=== PATIENT | male | born 1960 | race Caucasian/White ===

== ENCOUNTER 2020-10-23 12:08 | Emergency (ER) | payer MEDICARE ==
[2020-10-23 12:22] VITALS: BP 132/83
--- NOTE | 2020-10-23 12:25 | ER Document Report ---
ED Medical Screen (RME) - General Chief Complaint: Flank Pain Stated Complaint: POSSIBLE KIDNEY STONE Time Seen by Provider: 10/23/20 12:21 - HPI Notes: Patient is a 60-year-old male with a history of frequent kidney stones who pr esents with left flank pain that began a couple days ago. Patient states his pain feels similar to his past kidney stones. His last kidney stone was a year and a half ago and had a lithotripsy done. He denies dysuria, hematuria, nausea, vomiting, and fever. Physical Exam - Vital signs Vitals: Temp Pulse Resp BP Pulse Ox 97.6 F 72 16 132/83 H 99 10/23/20 12:18 10/23/20 12:18 10/23/20 12:18 10/23/20 12:18 10/23/20 12:18 - Abdominal Tenderness: Tender - Left flank - Back Back: No: CVA tenderness Course - Re-evaluation Re-evalutation: I have greeted and performed a rapid initial assessment of this patient. A comprehensive ED assessment and evaluation of the patient, analysis of test results and completion of medical decision making process will be conducted by an additional ED providers. - Vital Signs Vital signs: Temp Pulse Resp BP Pulse Ox 97.6 F 72 16 132/83 H 99 10/23/20 12:18 10/23/20 12:18 10/23/20 12:18 10/23/20 12:18 10/23/20 12:18
[2020-10-23 12:55] LABS: ABSOLUTE EOSINOPHILS # (AUTO) 0.1 10^3/uL (0.0-0.6); ABSOLUTE LYMPHOCYTES (AUTO) 2.1 10^3/uL (0.5-4.7); ABSOLUTE MONOCYTES (AUTO) 0.6 10^3/uL (0.1-1.4); ABSOLUTE NEUT (AUTO) 2.5 10^3/uL (1.7-8.2); BASOPHILS % (AUTO) 0.8 % (0-2); EOSINOPHILS % (AUTO) 2.6 % (0-6); HEMOGLOBIN 14.2 g/dL (13.5-17.0); LYMPHOCYTES % (AUTO) 38.6 % (13-45); MEAN CORPUSCULAR HGB CONC 33.7 g/dL (32.0-36.0); MEAN CORPUSCULAR VOLUME 89 fl (80-97); MONOCYTES % (AUTO) 11.8 % (3-13); PLATELET COUNT 179 10^3/uL (150-450); RED BLOOD COUNT 4.73 10^6/uL (4.35-5.55); RED CELL DISTRIBUTION WIDTH 13.8 % (11.5-14.0); SEGMENTED NEUTROPHILS % (AUTO) 46.2 % (42-78); TOTAL CELLS COUNTED % (AUTO) 100 %; WHITE BLOOD COUNT 5.3 10^3/uL (4.0-10.5)
--- NOTE | 2020-10-23 12:59 | RADIOLOGY REPORT (SQ) ---
EXAM DESCRIPTION: CT ABD/PELVIS NO ORAL OR IV IMAGES COMPLETED DATE/TIME: 10/23/2020 12:41 pm REASON FOR STUDY: flank pain COMPARISON: None. TECHNIQUE: CT scan of the abdomen and pelvis performed without intravenous or oral contrast. Images reviewed with lung, soft tissue, and bone windows. Reconstructed coronal and sagittal MPR images revi ewed. All images stored on PACS. All CT scanners at this facility use dose modulation, iterative reconstruction, and/or weight based d osing when appropriate to reduce radiation dose to as low as reasonably achievable (ALARA). [facility]: Dose Right [facility]: CareDose [facility]: Dose Right [facility]: Teradose 4D [facility]: Smart [place] [employer] RADIATION DOSE: CT Rad equipment meets quality standard of care and radiation dose reduction techniq ues were employed. CTDIvol: 6.8 mGy. DLP: 410 mGy-cm. LIMITATIONS: None. FINDINGS: LOWER CHEST: No acute abnormality. NON-CONTRASTED LIVER, SPLEEN, ADRENALS: Evaluation is limited by the absence of intravenous contrast. The relative low attenuation of the hepatic parenchyma is suggestive of underlying hepatic steatosi s. The spleen is normal in size. There is no adrenal mass. PANCREAS: No acute gross abnormality of the pancreas. GALLBLADDER: The gallbladder is contracted. RIGHT KIDNEY AND URETER: Evaluation is limited by the absence of intravenous contrast. There are clu stered calculi in the interpolar portion of the kidney that measure 13 x 9 mm. The 3 x 2.8 cm cystic low-attenuation lesion superior to the calculi that projects into the renal sinus could represent a parapelvic cyst. There is no hydronephrosis, hydroureter or ureterolithiasis. LEFT KIDNEY AND URETER: Evaluation is limited by the absence of intravenous contrast. There is no hy dronephrosis, nephrolithiasis, hydroureter or ureterolithiasis. AORTA AND RETROPERITONEUM: No aneurysm of the abdominal aorta. No retroperitoneal adenopathy, hemorr kecia or mass. BOWEL AND PERITONEAL CAVITY: No bowel obstruction, bowel wall thickening or pericolonic/ perienteric inflammation. No mesenteric adenopathy, free intraperitoneal fluid or mesenteric/ omental inflammati on. APPENDIX: Normal. PELVIS, BLADDER, AND ABDOMINAL WALL: The urinary bladder is contracted. There is no abdominal wall m ass or hernia. BONES: No fracture or osseous lesion. OTHER: No other findings. IMPRESSION: Clustered calculi in the interpolar portion of the right kidney without associated hydro nephrosis. COMMENT: Quality ID # [id number]: Final reports with documentation of one or more dose reduction techniques (e.g., Automated exposure control, adjustment of the mA and/or kV according to patient size, use of iterative reconstruction technique) TECHNICAL DOCUMENTATION: JOB ID: [id number] 2010 [employer]- All Rights Reserved Reading location - IP[facility]workstation name: [email or web address]
[2020-10-23 13:08] LABS: APPEARANCE,URINE CLEAR; BILIRUBIN,URINE NEGATIVE (NEGATIVE); CALCIUM OXALATE CRYSTALS,URINE FEW /HPF; COLOR,URINE YELLOW; GLUCOSE, URINE NEGATIVE (NEGATIVE); KETONES,URINE TRACE mg/dL (NEGATIVE); LEUKOCYTE ESTERASE,URINE NEGATIVE (NEGATIVE); NITRITE,URINE NEGATIVE (NEGATIVE); PROTEIN,URINE NEGATIVE (NEGATIVE); URINE SPECIFIC GRAVITY 1.026; UROBILINOGEN,URINE NEGATIVE mg/dL (<2.0)
[2020-10-23 13:21] LABS: ALBUMIN 4.1 g/dL (3.5-5.0); ALKALINE PHOSPHATASE 75 U/L (38-126); ANION GAP 5 (5-19); ASPARTATE AMINO TRANSFERASE 25 U/L (17-59); BILIRUBIN,DIRECT 0.2 mg/dL (0.0-0.4); BILIRUBIN,TOTAL 0.8 mg/dL (0.2-1.3); BLOOD UREA NITROGEN 18 mg/dL (7-20); CALCIUM 8.8 mg/dL (8.4-10.2); CARBON DIOXIDE 29 mmol/L (22-30); CHLORIDE 107 mmol/L (98-107); GLUCOSE 95 mg/dL (75-110); TOTAL PROTEIN 6.9 g/dL (6.3-8.2)
[2020-10-23] MEDS ORDERED: HYDROCODONE/ACETAMINOPHEN 5-325 MG TABLET PO ONE (13:22)
[2020-10-23] MEDS ORDERED: ONDANSETRON 4 MG TAB.RAPDIS PO ONE (13:22)
--- NOTE | 2020-10-23 14:48 | ER Document Report ---
ED General - General Chief Complaint: Flank Pain Stated Complaint: POSSIBLE KIDNEY STONE Time Seen by Provider: 10/23/20 12:21 Information source: Patient - HPI Notes: Patient with Parkinson's and history of kidney stones presents with left flank pain. It started last night. It is been constant and moderate in intensity. It is sharp. It feels like previous kidney stones that he has had in the past. He states he is had to have lithotripsy in the past for the stones. He denies any fevers. No vomiting. No problems with stool. No trauma. This pain has been sharp with nothing making it better or worse. - Related Data Allergies/Adverse Reactions: codeine Allergy (Verified 10/23/20 13:33) propoxyphene [From Darvon] Allergy (Verified 10/23/20 13:33) Home Medications: carbidopa-levodopa. citroline Past Medical History - General Information source: Patient - Social History Smoking Status: Never Smoker Chew tobacco use (# tins/day): No Frequency of alcohol use: None Drug Abuse: None Family History: Reviewed & Not Pertinent Renal/ Medical History: Reports: Hx Kidney Stones Review of Systems - Review of Systems Constitutional: denies: Chills, Fever Cardiovascular: denies: Chest pain, Palpitations Respiratory: denies: Cough, Short of breath -: Yes All other systems reviewed and negative Physical Exam - Vital signs Vitals: Temp Pulse Resp BP Pulse Ox 97.6 F 72 16 132/83 H 99 10/23/20 12:18 10/23/20 12:18 10/23/20 12:18 10/23/20 12:18 10/23/20 12:18 Interpretation: Normal - General General appearance: Appears well, Alert - HEENT Head: Normocephalic, Atraumatic Eyes: Normal Pupils: PERRL - Respiratory Respiratory status: No respiratory distress Chest status: Nontender Breath sounds: Normal Chest palpation: Normal - Cardiovascular Rhythm: Regular Heart sounds: Normal auscultation Murmur: No - Abdominal Inspection: Normal Distension: No distension Bowel sounds: Normal Tenderness: Nontender Organomegaly: No organomegaly - Back Back: Normal, Nontender - Extremities General upper extremity: Normal inspection, Nontender, Normal color, Normal ROM, Normal temperature General lower extremity: Normal inspection, Nontender, Normal color, Normal ROM, Normal temperature, Normal weight bearing. No: Sacha's sign - Neurological Neuro grossly intact: Yes Cognition: Normal Orientation: AAOx4 [place] Coma Scale Eye Opening: Spontaneous [place] Coma Scale Verbal: Oriented [place] Coma Scale Motor: Obeys Commands [place] Coma Scale Total: 15 Speech: Normal Motor strength normal: LUE, RUE, LLE, RLE Sensory: Normal - Psychological Associated symptoms: Normal affect, Normal mood - Skin Skin Temperature: Warm Skin Moisture: Dry Skin Color: Normal Course - Re-evaluation Re-evalutation: 10/23/20 14:44 Patient presents with left flank pain. CT is unremarkable for anything that would explain the origin of the left flank pain. Patient's exam is also unremarkable with no significant tenderness to palpation of the flank or abdomen. Patient's vital signs are stable and laboratories are also unremarkable. - Vital Signs Vital signs: Temp Pulse Resp BP Pulse Ox 97.6 F 72 16 132/83 H 99 10/23/20 12:18 10/23/20 12:18 10/23/20 12:18 10/23/20 12:18 10/23/20 12:18 - Laboratory Result Diagrams: 10/23/20 12:30 10/23/20 12:30 Laboratory results interpreted by me: 10/23/20 12:30 Urine Ketones TRACE H Urine Ascorbic Acid 40 H - Diagnostic Test Radiology reviewed: Image reviewed, Reports reviewed Discharge - Discharge Clinical Impression: Left flank pain Condition: Stable Disposition: HOME, SELF-CARE Instructions: Abdominal Pain ([facility]) Additional Instructions: Please follow-up with a family physician and a urologist as soon as possible. Prescriptions: Hydrocodone/Acetaminophen [[place] 5-325 mg Tablet] 1 tab PO Q6 PRN 3 Days #12 tablet PRN Reason: Ondansetron [Zofran Odt 4 mg Tablet] 1 - 2 tab PO Q4H PRN #15 tab.rapdis PRN Reason: For Nausea/Vomiting Referrals: SHELIA WELLINGTON MD [NO LOCAL MD] - Follow up in 1 week GIOVANI LIRA MD [COMMUNITY BASED STAFF] - Follow up in 1 week
== END 2020-10-23 15:58 | disposition home or self-care (01) ==
LOC: ER 12:08
DX: N20.0 Calculus of kidney (principal); R10.9 Unspecified abdominal pain; Z88.6 Allergy status to analgesic agent; Z88.5 Allergy status to narcotic agent; Z79.899 Other long term (current) drug therapy
CPT/HCPCS: 99284; 36415; 85025; 80053; 81001; 74176; A9270 ×2; S0119